=== PATIENT | male | born 1955 | race Caucasian/White ===

== ENCOUNTER 2016-09-16 20:42 | Inpatient (IN) | payer OTHER ==
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
--- NOTE | ~2016-09-16 | HP ---
History And Physical [address] [place]. [address] NAME: MARY ABRAHAM : 55 STATUS : ADM [place] PAT#: [id number] AGE: 61 ADM/REG DATE : 09/16/16 MR#: [id number] REPORT SERV DATE: 09/17/16 DICTATED BY: STERLING BOWMAN DATE: 09/16/16 REPORT STATUS : Draft TRANSCRIBED BY: MODL DATE: 09/16/16 DATE OF ADMISSION: 09/16/2016 CHIEF COMPLAINT: Abdominal pain and diarrhea. HISTORY OF PRESENT ILLNESS: This is a 61-year-old male with history of recurrent ileus in the past followed by Dr. José Miguel Hill, history of pancreatitis, and chronic hyponatremia, who presents to the emergency room at [facility] with the above-mentioned complaint. History is obtained from the patient and reviewing data available on the [employer] system. According to Mr. Abraham, he had been in his usual state of health until about two weeks ago when he started having severe sharp stabbing pain in his lower abdomen and diarrhea. This pain lasts hours at a time and does not ease up. Today, it started around 8 a.m. and lasted until half an hour ago. He passed some gas when he was here in the hospital and that seemed to help with the pain. However, he required intravenous pain medication. He says this was not associated with nausea or vomiting but just the diarrhea. Diarrhea was watery without any blood in it. He finally decided to call his [id number] who brought him to the hospital here. In the emergency room, initial workup including CT scan of the abdomen and pelvis showed moderate severity, partial small bowel obstruction. He also had hyponatremia and Hospitalist Service is asked to admit him for further evaluation and treatment. At the time of my evaluation, he denied any chest pain, palpitations, or orthopnea. He had no cough, hemoptysis, night sweats, or weight loss. He denied any recent falls or loss of consciousness. No history of recent fevers or chills. Did have some nausea, but no vomiting and had diarrhea as mentioned above. No history of recent hematemesis, hematochezia, or hematuria. No other history of recent travel or exposures other than those mentioned above. He is followed by Dr. Toro Ernst, his cadd technician and Dr. العراقي, vascular surgeon. PAST MEDICAL HISTORY: Significant for history of essential hypertension, chronic hyponatremia, and bipolar disorder. He has stents placed in his iliac arteries for peripheral vascular disease and has a history of recurrent ileus followed by Dr. José Miguel Hill. He also had a bout of pancreatitis in the past. He had admission at [facility] for pneumonia last year. SOCIAL HISTORY: He has about 100 pack-year history of smoking and continues to do so. Denies alcohol use, especially after his attack of pancreatitis. He does not use recreational drugs. 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 FAMILY HISTORY: Noncontributory. MEDICATIONS: At home were reviewed by me in the chart today and reordered by me. History And Physical [address] [address] NAME: MARY ABRAHAM : 55 STATUS : ADM [place] PAT#: [id number] AGE: 61 ADM/REG DATE : 09/16/16 MR#: [id number] REPORT SERV DATE: 09/17/16 DICTATED BY: STERLING BOWMAN DATE: 09/16/16 REPORT STATUS : Draft TRANSCRIBED BY: GUSTAVO DATE: 09/16/16 REVIEW OF SYSTEMS: As in history of present illness. All other systems were reviewed in detail and are quite unremarkable. PHYSICAL EXAMINATION: GENERAL: This is a pleasant 61-year-old, not in any acute distress. HEENT: His head is atraumatic, normocephalic. He is alert, awake, oriented to time, place, and person. His pupils are equal, reacting to light, and accommodating. External ocular muscles are intact. Membranes are moist and pink. Sclerae are nonicteric. NECK: Supple with no jugular venous distention, lymphadenopathy, or thyromegaly. LUNGS: Clear to auscultation but no wheezes, rubs, or crackles. There was prolonged expiratory phase. Trachea appeared to be in the midline. HEART: Auscultation of his heart revealed normal rate and rhythm with no murmurs, rubs, or gallops appreciated. ABDOMEN: Soft, but tender to palpation. No rebound or guarding. No rigidity. Bowel sounds are present. EXTREMITIES: Showed no cyanosis, clubbing, or edema. NEUROLOGIC: Grossly intact. No focal sensory or motor deficits. Higher functions appeared intact. Gait was not examined. VITAL SIGNS: His vital signs today showed a temperature of 98.4, pulse 72, respirations 16 a minute, blood pressure was 156/89, oxygen saturations were 99%, breathing 2 L of oxygen via nasal cannula. LABORATORY DATA: Reviewed on the [employer] system showed a sodium 127, potassium 3.9, chloride 91, CO2 of 25, BUN 10 with a creatinine 1.02, and blood glucose was 104. Liver numbers appeared within normal limits, lipase was 113. CBC showed a white blood cell count of 8800, hemoglobin was 14.4, hematocrit 39.9, platelet count was 271,000. Urinalysis was not done today. Films of the CT scan of his abdomen and pelvis were reviewed by me on the PACS today and interpreted by me. Official radiology comments were also reviewed. There is moderate severity, partial small bowel obstruction with multiple air-fluid levels. A 12-lead EKG done in emergency room was reviewed and interpreted by me. There is sinus rhythm with a rate of 76 per minute. There is occasional PVCs as well. IMPRESSION: 1. Abdominal pain. 2. Partial small bowel obstruction. 3. Chronic hyponatremia. 4. Essential hypertension. 5. Unknown arrhythmia, followed by Dr. Toro Ernst, his cadd technician for which he has recently placed the patient on metoprolol 25 mg p.o. b.i.d. 6. Bipolar disorder. 7. Peripheral vascular disease with stents in the iliac arteries done by Dr. العراقي. 8. History of recurrent ileus followed by Dr. Hill. 9. History of pancreatitis. 10.History of pneumonia. History And Physical [address] [address] NAME: MARY ABRAHAM : 55 STATUS : ADM [place] PAT#: [id number] AGE: 61 ADM/REG DATE : 09/16/16 MR#: [id number] REPORT SERV DATE: 09/17/16 DICTATED BY: STERLING BOWMAN DATE: 09/16/16 REPORT STATUS : Draft TRANSCRIBED BY: MODL DATE: 09/16/16 PLAN: We will admit Mr. Abraham to the Hospitalist Service to med/surg telemetry bed for 24- hour observation. We will keep him n.p.o. for now. Continue pain control with intravenous Toradol. We will start him on IV fluids for volume resuscitation. Follow his sodium levels with 4 hourly basic metabolic profiles. I have asked the nurses to call me with the results as they get it. We will go ahead and consult Dr. Hill to evaluate him in the morning. The ER had already spoken with surgeon Dr. Avendano who did not think it was a surgical issue at this point. We will repeat chemistry and electrolytes in the morning, replace as needed. We will also place him on unfractionated heparin for DVT prophylaxis at this time. Please see the rest of the orders today. I have discussed the above plans with the patient. His questions were answered, and he is agreeable to the above recommendations. Hospitalist Service will be following him during his stay. /GUSTAVO Sterling Bowman M.D. / [id number] CC: Shashi Joyner Jr, MD
--- NOTE | ~2016-09-16 | DS ---
Discharge Summary [address] [place]. [address] NAME: MARY MILLER : 55 STATUS : DIS [place] PAT#: [id number] AGE: 61 ADM/REG DATE : 09/16/16 MR#: [id number] REPORT SERV DATE: 09/21/16 DICTATED BY: JR. JOYNER WILLIAM JOHN DATE: 09/20/16 REPORT STATUS : Draft TRANSCRIBED BY: MODAroldo DATE: 09/20/16 ADMISSION DATE: 09/16/2016 DISCHARGE DATE: 09/20/2016 DISCHARGE DIAGNOSES: 1. Abdominal pain. 2. Partial small bowel obstruction. 3. Mesenteric ischemia with history of prior stenting. 4. Bipolar disorder with insomnia. 5. Hypertension. 6. History of bradyarrhythmia. 7. History of peripheral arterial disease with history of stents. OPERATIONS, PROCEDURES, AND TREATMENTS: Include: 1. CT of the abdomen and pelvis done 09/16, which showed diffusely fluid and air dilated small bowel at the level at least of the distal ileum, the transition zone was not identified. This is most consistent with moderate severity partial small bowel obstruction pattern, less likely is an asymmetric ileus. There was nonvisualized appendix. There was a contracted gallbladder. A small 2.3 cm hiatal hernia and severe degenerative disk disease at L2 through S1. 2. Mesenteric duplex ultrasound done 09/18 showed normal velocities in the celiac origin and superior mesenteric artery. There was increased velocity involving the HUBER origin. 3. Small bowel follow-through done 09/17 which showed mild distention of small-bowel loops with areas of angulated small bowel orientation suggesting segments of low-grade partial small bowel obstruction possibly due to adhesions. There was no evidence of high-grade obstruction. The small bowel was otherwise intrinsically normal in appearance, the small bowel transition time was less than 2.[address] angiogram of the abdomen done 09/18 showed celiac and SMA widely patent with stents in place in the celiac artery. The HUBER origin was visualized. There is considerable artifact secondary to barium within the colon from prior exam. CONSULTING PHYSICIANS: Include Dr. العراقي of Vascular Surgery, Dr. Hill of Gastroenterology, Dr. Kunz of Psychiatry. DISCHARGE MEDICATIONS: Include: 1. Plavix 75 mg orally daily. 2. Lisinopril/hydrochlorothiazide 20/25, one tablet orally daily. 3. Melatonin 5 mg orally at hour of sleep. 4. Metoprolol 25 mg orally twice a day. 5. Flomax 0.4 mg orally daily. 6. Spiriva HandiHaler one dose daily. 7. MiraLAX one packet daily. 8. Lactulose 30 mL three times a day. 9. Colace 100 mg orally daily. 10.Calcium carbonate 600 mg daily. 11.Iron daily. Discharge Summary [address] [address] NAME: MARY MILLER : 55 STATUS : DIS [place] PAT#: [id number] AGE: 61 ADM/REG DATE : 09/16/16 MR#: [id number] REPORT SERV DATE: 09/21/16 DICTATED BY: JR. JOYNER WILLIAM JOHN DATE: 09/20/16 REPORT STATUS : Draft TRANSCRIBED BY: GUSTAVO DATE: 09/20/16 12.Symbicort two puffs twice a day. 13.Sucralfate 1 g orally four times a day. 14.Baclofen 20 mg orally three times a day. 15.Levsin 0.125 mg every six hours as needed. 16.Protonix 40 mg orally daily. HOSPITAL COURSE: The patient is a 61-year-old white male who presented to the emergency room on 09/16 with complaint of abdominal pain and diarrhea. The patient has a history of recurrent ileus followed by Dr. José Miguel Hill. He was in his usual state of health until about two weeks prior to presentation when he started having severe sharp stabbing pains in the lower abdomen with diarrhea. The pain worsened in severity and he presented to the emergency room. Emergency room evaluation was significant for temperature of 98.4, heart rate 72, respiratory rate 16, blood pressure 156/89. Abdominal exam showed a soft abdomen globally tender to palpation without guarding or rebound. There was no rigidity. Bowel sounds were present. Laboratory was significant for a sodium of 127, bicarb of 25, BUN 10, creatinine 1, liver enzymes were normal. White count of 8.8. CT of the abdomen and pelvis as detailed above. The patient was admitted to the Clinical Decision Unit for observation. He was seen in consultation by Dr. José Miguel Hill and underwent a small-bowel follow-through and mesenteric ultrasound as detailed above. There was no evidence of high-grade obstruction and the patient's diet was gradually increased and he tolerated a regular diet. The mesenteric ultrasound showed potential HUBER stenosis, therefore the patient underwent a CT angiogram of the abdomen which is again detailed above. Dr. العراقي, Vascular Surgery, saw the patient, felt there was no acute need for intervention and would follow the patient up in 4 to 6 weeks. The patient was tolerating diet, was pain free, and felt to be stable for discharge on 09/20/2016. Regarding the patient's bipolar disorder, the patient says he does not sleep well and gets only 2 to 3 hours of sleep per night. He was seen in consultation by Dr. Shyam Kunz, who felt a trial of Seroquel for sleep would be reasonable. The patient did not like the way it made him feel and refused to take it. Dr. Kunz felt it was most reasonable for the patient to follow up with his outpatient psychiatrist at [facility]. The patient has already made an intake appointment for this afternoon at [facility]. The patient also has chronic hyponatremia and was instructed on fluid restriction. The patient will be discharged home today 09/20/2016. DIET: Regular with 1.5 to 2 L fluid restriction. ACTIVITY: As tolerated. Discharge Summary [address] [address] NAME: MARY MILLER : 55 STATUS : DIS [place] PAT#: [id number] AGE: 61 ADM/REG DATE : 09/16/16 MR#: [id number] REPORT SERV DATE: 09/21/16 DICTATED BY: JR. JOYNER WILLIAM JOHN DATE: 09/20/16 REPORT STATUS : Draft TRANSCRIBED BY: GUSTAVO DATE: 09/20/16 FOLLOWUP: [facility] as scheduled. Dr. العراقي in four to six weeks. The patient also needs primary care provider and requested a list of providers. For discharge exam and laboratory, please see daily progress note. This discharge took 35 minutes for patient encounter, coordination of care, and documentation. ANNY/GUSTAVO Shashi Joyner Jr, MD / [id number] CC: Shashi Joyner Jr, MD
--- NOTE | ~2016-09-16 | CN ---
Consultation Report [facility] [address] [place]. [address] NAME: MARY MILLER : 55 STATUS : ADM [place] PAT#: [id number] AGE: 61 ADM/REG DATE : 09/16/16 MR#: [id number] REPORT SERV DATE: 09/17/16 DICTATED BY: MICKY PATTON DATE: 09/17/16 REPORT STATUS : Draft TRANSCRIBED BY: MODL DATE: 09/17/16 CONSULT DATE OF CONSULTATION: CONSULT FOR: Abdominal pain with partial ileus and diarrhea. HISTORY OF PRESENT ILLNESS: Mr. Jarad Ayers is a pleasant 61-year-old gentleman who is well known to me. Has a history of pancreatitis with multiple episodes of mesenteric vascular obstruction with status post stent placement by Dr. العراقي. According to him, he had gone to [facility] with complaints of abdominal pain, was evaluated there, and then discharged home. He again went to [place] where he was again evaluated, given pain medications, and discharged home. Now, he has presented to the emergency room here with complaints of diarrhea about 10 days duration, which is profuse according to him, about 4-5 times per day and been there for about 10 days. He also complains of pain in the lower abdomen. He was evaluated here in the ER and was found to have partial ileus. Was also found to have hyponatremia, hence was admitted. Currently, the patient feels better. Has less abdominal pain. No distention of abdomen. Has had 1 or 2 stools here. He is craving for Dilaudid and morphine. The nurse was present while I was examining. Had a cinch with Toradol which he did not want, and he was demanding morphine and Dilaudid. No history of nausea or vomiting. Feels hungry at this point. Has no history of any hematemesis, hematochezia, or hematuria. PAST MEDICAL HISTORY: Significant for hypertension, bipolar disorder, iliac artery and peripheral artery stents. Has vascular disease in the mesenteric vessels and has had stents placed. Has had a bout of pancreatitis in the past. Also, has hypertension and claims to have chronic hyponatremia. SOCIAL HISTORY: He has a 100-pack year of smoking. Still smokes cigarettes. Does not take any alcohol. 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 FAMILY HISTORY: Noncontributory at this time. CURRENT MEDICATIONS: Baclofen 20 mg, calcium carbonate, Plavix 75 mg per day, docusate sodium, hyoscyamine 0.125 mg p.o. t.i.d., lactulose 10 mL daily, lisinopril 10/25, melatonin 5 mg per day, metoprolol 25 mg per day, Pantoprazole 40 mg per day, polyethylene glycol liquid 1 packet p.o. daily, sucralfate 1 g daily, Flomax 0.4 mg per day, Spiriva 1 capsule inh p.r.n., iron tablets 1 tablet per day and Symbicort 2 puffs b.i.d. PHYSICAL EXAMINATION: VITAL SIGNS: His temperature is normal. The BP is 160/90, oxygen saturation is 99%. NECK: Supple. Trachea is central. CHEST: Clear breath sounds are heard. CARDIOVASCULAR SYSTEM: S1 and S2 are heard. There is no S3. Consultation Report [address] [address] NAME: MARY MILLER : 55 STATUS : ADM [place] PAT#: [id number] AGE: 61 ADM/REG DATE : 09/16/16 MR#: [id number] REPORT SERV DATE: 09/17/16 DICTATED BY: MICKY PATTON DATE: 09/17/16 REPORT STATUS : Draft TRANSCRIBED BY: GUSTAVO DATE: 09/17/16 ABDOMEN: Soft. Bowel sounds are heard. Hernial orifices are normal. EXTREMITIES: Dorsalis pedis and posterior tibial are well felt on both sides. [employer]: Higher function cranial nerves and reflexes are normal. LABS: Showed a sodium of 127, potassium is 3.9, chloride is 91, bicarb is 25, BUN is 10, creatinine is 1.02, blood glucose is 104. Lipase is 113. Hemoglobin is 14.4, hematocrit is 39.9, platelet count is 271,000. CT scan of the abdomen shows partial small bowel obstruction with dilated loops of small bowel with some stools in the large bowel. IMPRESSION: 1. Partial small bowel obstruction. Now resolved. 2. Hyponatremia. 3. Vascular disease with multiple stents. 4. Narcotic addiction with craving for morphine and Dilaudid. Does not want Toradol. 5. Diarrhea. PLAN: Ultrasound abdomen with Doppler to assess flow in the mesenteric vessels. Small bowel followthrough. Stools for C. diff stool culture. Agree with Toradol. Avoid narcotics. Continue IV fluids like normal saline to bring his sodium up to about 130. We will restrict fluid to about 1200 mL per day. We will also avoid any laxatives at this point. Thank you for the consult. We will follow the patient with you. JOSE C/GUSTAVO Micky Patton M.D. / [id number] CC: Shashi Joyner Jr, MD
[2016-09-16 18:10] LABS: BASOPHILS ABSOLUTE 0.09 10/3/uL (0.0-0.16); EOSINOPHILS 0.3 %; EOSINOPHILS ABSOLUTE 0.03 10/3/uL (0.0-0.53); HEMOGLOBIN 14.4 g/dL (13.6-17.8); IMMATURE GRANULOCYTES 0.2 %; IMMATURE GRANULOCYTES ABSOLUTE 0.02 10/3/uL (0.0-0.11); LYMPHOCYTES 25.1 %; MEAN CORPUS HGB CONC 36.1 g/dL (32.0-36.0); MEAN CORPUSCULAR HEMOGLOB 31.1 pg (26.0-34.0); MEAN PLATELET VOLUME 8.5 fL (9.2-13.0); MONOCYTES 7.9 %; MONOCYTES ABSOLUTE 0.69 10/3/uL (0.21-1.20); NEUTROPHILS 65.5 %; NEUTROPHILS ABSOLUTE 5.75 10/3/uL (2.02-8.40); PLATELET COUNT 271 10/3/uL (150-400); RBC DISTRIBUTION WIDTH 14.6 % (12.0-16.0); RED CELL COUNT 4.63 10/6/uL (4.7-6.1); WHITE BLOOD CELLS 8.8 10/3/uL (4.5-10.5)
[2016-09-16 18:15] LABS: HEMATOCRIT 39.9 % (40.0-51.0); MANUAL DIFF NO %; MEAN CORPUSCULAR VOLUME 86.2 fL (80-100)
[2016-09-16 18:40] LABS: A/G RATIO 1.2 (0.7-1.9); ALBUMIN 4.6 G/DL (3.5-5.0); ALKALINE PHOSPHATASE 70 U/L (45-117); BUN (BLOOD UREA NITROGEN) 10 MG/DL (6-23); CO2 (CARBON DIOXIDE) 25 MMOL/L (24-34); CREATININE 1.02 MG/DL (0.70-1.30); GFR AFRICAN AMERICAN 92 ML/MIN (>=60); GFR NON AFRICAN AMERICAN 79 ML/MIN (>=60); GLOBULIN 3.9 G/DL (2.5-4.1); POTASSIUM, SERUM 3.9 MMOL/L (3.5-5.3); SGOT(AST) 22 U/L (5-40); SGPT(ALT) 27 U/L (5-65); TOTAL BILIRUBIN 0.6 MG/DL (0-1.2); TOTAL PROTEIN 8.5 G/DL (6.0-8.5)
[2016-09-16 18:41] LABS: CALCIUM, SERUM 10.3 MG/DL (8.5-10.4); CHLORIDE, SERUM 91 MMOL/L (96-112); GLUCOSE, SERUM 104 MG/DL (60-99); SODIUM, SERUM 127 MMOL/L (135-148)
[2016-09-16] MEDS ORDERED: PLAVIX PO (21:00)
[2016-09-16] MEDS ORDERED: CONSTULOSE PO (21:01)
[2016-09-16] MEDS ORDERED: MIRALAX POWDER1 PKT PO (21:01)
[2016-09-16] MEDS ORDERED: ZESTORETIC1 TA1 PO (21:01)
[2016-09-16] MEDS ORDERED: CALTRAT600 PO (21:02)
[2016-09-16] MEDS ORDERED: D.O.S.100 MG PO (21:02)
[2016-09-16] MEDS ORDERED: IRON PO (21:02)
[2016-09-16] MEDS ORDERED: SYMBICORT PO (21:03)
[2016-09-16] MEDS ORDERED: SPIRIVA INH (21:03)
[2016-09-16] MEDS ORDERED: SUCR PO (21:04)
[2016-09-16] MEDS ORDERED: *UNABLE1 (21:04)
[2016-09-16] MEDS ORDERED: BACLOFEN20 MG PO (21:40)
[2016-09-16] MEDS ORDERED: FLOMAX4 PO (21:41)
[2016-09-16] MEDS ORDERED: LEVSINTAB PO (21:41)
[2016-09-16] MEDS ORDERED: MELATONIN5 M1 PO (21:41)
[2016-09-16] MEDS ORDERED: LOP25 PO (21:41)
[2016-09-16] MEDS ORDERED: PROTONIX PO (21:41)
[2016-09-17 03:43] LABS: BASOPHILS 0.7 %; BASOPHILS ABSOLUTE 0.05 10/3/uL (0.0-0.16); EOSINOPHILS 1.1 %; EOSINOPHILS ABSOLUTE 0.08 10/3/uL (0.0-0.53); HEMATOCRIT 40.4 % (40.0-51.0); HEMOGLOBIN 14.5 g/dL (13.6-17.8); IMMATURE GRANULOCYTES 0.1 %; IMMATURE GRANULOCYTES ABSOLUTE 0.01 10/3/uL (0.0-0.11); LYMPHOCYTES 31.4 %; LYMPHOCYTES ABSOLUTE 2.37 10/3/uL (0.67-4.30); MEAN CORPUS HGB CONC 35.9 g/dL (32.0-36.0); MEAN CORPUSCULAR HEMOGLOB 30.9 pg (26.0-34.0); MEAN PLATELET VOLUME 8.9 fL (9.2-13.0); MONOCYTES 9.3 %; NEUTROPHILS 57.4 %; NEUTROPHILS ABSOLUTE 4.33 10/3/uL (2.02-8.40); PLATELET COUNT 252 10/3/uL (150-400); RBC DISTRIBUTION WIDTH 14.4 % (12.0-16.0); WHITE BLOOD CELLS 7.5 10/3/uL (4.5-10.5)
[2016-09-17 03:50] LABS: MANUAL DIFF NO %
[2016-09-17 03:54] LABS: BUN (BLOOD UREA NITROGEN) 15 MG/DL (6-23); CALCIUM, SERUM 9.8 MG/DL (8.5-10.4); CHLORIDE, SERUM 93 MMOL/L (96-112); CO2 (CARBON DIOXIDE) 23 MMOL/L (24-34); CREATININE 1.35 MG/DL (0.70-1.30); GFR AFRICAN AMERICAN 65 ML/MIN (>=60); GFR NON AFRICAN AMERICAN 56 ML/MIN (>=60); GLUCOSE, SERUM 92 MG/DL (60-99); PHOSPHORUS, SERUM 4.3 MG/DL (2.5-4.5); POTASSIUM, SERUM 3.6 MMOL/L (3.5-5.3); SODIUM, SERUM 128 MMOL/L (135-148)
[2016-09-17 10:24] LABS: BUN (BLOOD UREA NITROGEN) 17 MG/DL (6-23); CHLORIDE, SERUM 97 MMOL/L (96-112); CO2 (CARBON DIOXIDE) 21 MMOL/L (24-34); GFR AFRICAN AMERICAN 68 ML/MIN (>=60); GFR NON AFRICAN AMERICAN 59 ML/MIN (>=60); GLUCOSE, SERUM 83 MG/DL (60-99); POTASSIUM, SERUM 4.1 MMOL/L (3.5-5.3); SODIUM, SERUM 128 MMOL/L (135-148)
[2016-09-17 10:26] LABS: CALCIUM, SERUM 8.7 MG/DL (8.5-10.4)
[2016-09-17 21:32] LABS: BUN (BLOOD UREA NITROGEN) 21 MG/DL (6-23); CALCIUM, SERUM 8.2 MG/DL (8.5-10.4); CHLORIDE, SERUM 96 MMOL/L (96-112); CO2 (CARBON DIOXIDE) 24 MMOL/L (24-34); CREATININE 1.17 MG/DL (0.70-1.30); GFR AFRICAN AMERICAN 78 ML/MIN (>=60); GFR NON AFRICAN AMERICAN 67 ML/MIN (>=60); GLUCOSE, SERUM 127 MG/DL (60-99); POTASSIUM, SERUM 3.3 MMOL/L (3.5-5.3); SODIUM, SERUM 131 MMOL/L (135-148)
[2016-09-18 04:10] LABS: BASOPHILS 1.2 %; BASOPHILS ABSOLUTE 0.06 10/3/uL (0.0-0.16); EOSINOPHILS 2.6 %; EOSINOPHILS ABSOLUTE 0.13 10/3/uL (0.0-0.53); HEMOGLOBIN 12.2 g/dL (13.6-17.8); IMMATURE GRANULOCYTES 0.4 %; IMMATURE GRANULOCYTES ABSOLUTE 0.02 10/3/uL (0.0-0.11); LYMPHOCYTES 26.8 %; LYMPHOCYTES ABSOLUTE 1.33 10/3/uL (0.67-4.30); MEAN PLATELET VOLUME 8.8 fL (9.2-13.0); MONOCYTES 13.3 %; MONOCYTES ABSOLUTE 0.66 10/3/uL (0.21-1.20); NEUTROPHILS 55.7 %; NEUTROPHILS ABSOLUTE 2.76 10/3/uL (2.02-8.40); PLATELET COUNT 218 10/3/uL (150-400); RBC DISTRIBUTION WIDTH 14.2 % (12.0-16.0); RED CELL COUNT 3.94 10/6/uL (4.7-6.1)
[2016-09-18 04:12] LABS: HEMATOCRIT 33.9 % (40.0-51.0); MANUAL DIFF NO %
[2016-09-18 06:02] LABS: BUN (BLOOD UREA NITROGEN) 21 MG/DL (6-23); CALCIUM, SERUM 7.9 MG/DL (8.5-10.4); CHLORIDE, SERUM 98 MMOL/L (96-112); CO2 (CARBON DIOXIDE) 22 MMOL/L (24-34); CREATININE 0.83 MG/DL (0.70-1.30); GFR AFRICAN AMERICAN 110 ML/MIN (>=60); GFR NON AFRICAN AMERICAN 95 ML/MIN (>=60); POTASSIUM, SERUM 3.8 MMOL/L (3.5-5.3); SODIUM, SERUM 131 MMOL/L (135-148)
[2016-09-18 06:06] LABS: GLUCOSE, SERUM 80 MG/DL (60-99)
[2016-09-18 10:39] LABS: BUN (BLOOD UREA NITROGEN) 13 MG/DL (6-23); CHLORIDE, SERUM 101 MMOL/L (96-112); CO2 (CARBON DIOXIDE) 21 MMOL/L (24-34); CREATININE 0.92 MG/DL (0.70-1.30); GFR AFRICAN AMERICAN 104 ML/MIN (>=60); GFR NON AFRICAN AMERICAN 89 ML/MIN (>=60); GLUCOSE, SERUM 144 MG/DL (60-99); POTASSIUM, SERUM 3.9 MMOL/L (3.5-5.3); SODIUM, SERUM 131 MMOL/L (135-148)
[2016-09-18 16:45] LABS: BUN (BLOOD UREA NITROGEN) 12 MG/DL (6-23); CALCIUM, SERUM 8.2 MG/DL (8.5-10.4); CHLORIDE, SERUM 101 MMOL/L (96-112); GFR AFRICAN AMERICAN 112 ML/MIN (>=60); GFR NON AFRICAN AMERICAN 96 ML/MIN (>=60); SODIUM, SERUM 135 MMOL/L (135-148)
[2016-09-18 16:47] LABS: CO2 (CARBON DIOXIDE) 26 MMOL/L (24-34); GLUCOSE, SERUM 99 MG/DL (60-99)
[2016-09-19 01:36] LABS: CALCIUM, SERUM 8.8 MG/DL (8.5-10.4); CHLORIDE, SERUM 103 MMOL/L (96-112); CO2 (CARBON DIOXIDE) 25 MMOL/L (24-34); POTASSIUM, SERUM 3.9 MMOL/L (3.5-5.3); SODIUM, SERUM 136 MMOL/L (135-148)
[2016-09-19 01:42] LABS: BUN (BLOOD UREA NITROGEN) 9 MG/DL (6-23); CREATININE 0.65 MG/DL (0.70-1.30); GFR AFRICAN AMERICAN 122 ML/MIN (>=60); GFR NON AFRICAN AMERICAN 105 ML/MIN (>=60); GLUCOSE, SERUM 51 MG/DL (60-99)
[2016-09-19 05:47] LABS: BASOPHILS 1.9 %; BASOPHILS ABSOLUTE 0.07 10/3/uL (0.0-0.16); EOSINOPHILS 1.4 %; EOSINOPHILS ABSOLUTE 0.05 10/3/uL (0.0-0.53); HEMOGLOBIN 11.7 g/dL (13.6-17.8); IMMATURE GRANULOCYTES 0.3 %; IMMATURE GRANULOCYTES ABSOLUTE 0.01 10/3/uL (0.0-0.11); LYMPHOCYTES 49.7 %; MEAN CORPUS HGB CONC 35.5 g/dL (32.0-36.0); MEAN CORPUSCULAR HEMOGLOB 30.5 pg (26.0-34.0); MEAN CORPUSCULAR VOLUME 85.9 fL (80-100); MONOCYTES 15.5 %; MONOCYTES ABSOLUTE 0.56 10/3/uL (0.21-1.20); NEUTROPHILS 31.2 %; NEUTROPHILS ABSOLUTE 1.13 10/3/uL (2.02-8.40); PLATELET COUNT 228 10/3/uL (150-400); RBC DISTRIBUTION WIDTH 14.6 % (12.0-16.0); RED CELL COUNT 3.84 10/6/uL (4.7-6.1); WHITE BLOOD CELLS 3.6 10/3/uL (4.5-10.5)
[2016-09-19 05:48] LABS: MANUAL DIFF NO %
[2016-09-19 06:07] LABS: CALCIUM, SERUM 8.6 MG/DL (8.5-10.4); CHLORIDE, SERUM 103 MMOL/L (96-112); CO2 (CARBON DIOXIDE) 26 MMOL/L (24-34); CREATININE 0.65 MG/DL (0.70-1.30); GFR AFRICAN AMERICAN 122 ML/MIN (>=60); GFR NON AFRICAN AMERICAN 105 ML/MIN (>=60); GLUCOSE, SERUM 84 MG/DL (60-99); POTASSIUM, SERUM 3.8 MMOL/L (3.5-5.3); SODIUM, SERUM 138 MMOL/L (135-148)
[2016-09-19 06:12] LABS: BUN (BLOOD UREA NITROGEN) 8 MG/DL (6-23)
[2016-09-20] MEDS ORDERED: AMB5 PO (10:03)
== END 2016-09-20 13:09 | disposition home or self-care (01) | DRG 389 ==
LOC: ER 20:42 → CDU1 21:39 → CDU2 22:35
PROVIDERS: Internal Medicine; Physician Assistant
DX: K56.60 Unspecified intestinal obstruction (principal); K55.1 Chronic vascular disorders of intestine; E87.1 Hypo-osmolality and hyponatremia; F31.60 Bipolar disorder, current episode mixed, unspecified; G47.09 Other insomnia; I10 Essential (primary) hypertension; I73.9 Peripheral vascular disease, unspecified; F17.210 Nicotine dependence, cigarettes, uncomplicated; Z95.828 Presence of other vascular implants and grafts; Z79.02 Long term (current) use of antithrombotics/antiplatelets
CPT/HCPCS: 74175; 74176; 74250; 80048; 80053; 81001; 82272; 83690; 83735; 84100; 85025; 87045; 87046; 87046-59; 87899; 87899-59; 93005; 93975; 94640; 96374; 99285; A9270-GY; J1885; J2405; Q9967

== ENCOUNTER 2016-10-05 13:32 | Emergency (ER) | payer OTHER ==
[2016-10-05 10:57] LABS: BASOPHILS 1.7 %; BASOPHILS ABSOLUTE 0.12 10/3/uL (0.0-0.16); EOSINOPHILS 1.4 %; IMMATURE GRANULOCYTES 0.1 %; IMMATURE GRANULOCYTES ABSOLUTE 0.01 10/3/uL (0.0-0.11); LYMPHOCYTES 42.2 %; LYMPHOCYTES ABSOLUTE 3.01 10/3/uL (0.67-4.30); MEAN CORPUS HGB CONC 34.4 g/dL (32.0-36.0); MEAN CORPUSCULAR HEMOGLOB 30.1 pg (26.0-34.0); MEAN CORPUSCULAR VOLUME 87.6 fL (80-100); MEAN PLATELET VOLUME 8.7 fL (9.2-13.0); MONOCYTES 10.6 %; MONOCYTES ABSOLUTE 0.76 10/3/uL (0.21-1.20); NEUTROPHILS ABSOLUTE 3.14 10/3/uL (2.02-8.40); PLATELET COUNT 274 10/3/uL (150-400); RBC DISTRIBUTION WIDTH 14.3 % (12.0-16.0)
[2016-10-05 10:58] LABS: HEMATOCRIT 41.6 % (40.0-51.0); HEMOGLOBIN 14.3 g/dL (13.6-17.8); MANUAL DIFF NO %; RED CELL COUNT 4.75 10/6/uL (4.7-6.1); WHITE BLOOD CELLS 7.1 10/3/uL (4.5-10.5)
[2016-10-05 11:06] LABS: INTERNATIONAL NORMAL RATI 1.1 UNITS (-); PARTIAL THROMBO TIME 31.9 SEC (22.5-37.2); PROTIME (NOT ORD) 13.6 SEC (12.0-14.5)
[2016-10-05 11:15] LABS: ALBUMIN 4.4 G/DL (3.5-5.0); ALKALINE PHOSPHATASE 73 U/L (45-117); CALCIUM, SERUM 9.3 MG/DL (8.5-10.4); CREATININE 0.91 MG/DL (0.70-1.30); GFR AFRICAN AMERICAN 105 ML/MIN (>=60); GFR NON AFRICAN AMERICAN 91 ML/MIN (>=60); GLOBULIN 4.2 G/DL (2.5-4.1); GLUCOSE, SERUM 100 MG/DL (60-99); POTASSIUM, SERUM 4.1 MMOL/L (3.5-5.3); SGOT(AST) 21 U/L (5-40); SGPT(ALT) 25 U/L (5-65); TOTAL BILIRUBIN 0.6 MG/DL (0-1.2); TOTAL PROTEIN 8.6 G/DL (6.0-8.5); TROPONIN I <0.02 NG/ML (<0.05)
[2016-10-05 11:16] LABS: BUN (BLOOD UREA NITROGEN) 14 MG/DL (6-23); CHLORIDE, SERUM 91 MMOL/L (96-112); CO2 (CARBON DIOXIDE) 31 MMOL/L (24-34); SODIUM, SERUM 131 MMOL/L (135-148)
[2016-10-05 11:21] LABS: WBC (NOT ORDERED) (RFLEX) 0 (0-5)
[2016-10-05 11:28] LABS: ASCORBIC ACID (UR NOT ORDER) NEG (NEG); BILIRUBIN, URINE NEGATIVE (NEG); ER URINALYSIS TAT 0 Hrs 08 Mins; KETONE, URINE NEGATIVE (NEG); LEUKOCYTE ESTERASE(NOT OR NEG (NEG); NITRITE (URINE) NEG (NEG)
[~2016-10-05 13:32] MED LIST: *UNABLE1; AMB5 PO; BACLOFEN20 MG PO; CALTRAT600 PO; CONSTULOSE PO; D.O.S.100 MG PO; FLOMAX4 PO; IRON PO; LEVSINTAB PO; LOP25 PO; MELATONIN5 M1 PO; MIRALAX POWDER1 PKT PO; PLAVIX PO; PROTONIX PO; SPIRIVA INH; SUCR PO; SYMBICORT PO; ZESTORETIC1 TA1 PO
[2016-10-06] MEDS ORDERED: SPIRIVA INH (17:29)
[2016-10-06] MEDS ORDERED: ZESTORETIC1 TA1 PO (17:29)
[2016-10-06] MEDS ORDERED: PLAVIX PO (17:29)
[2016-10-06] MEDS ORDERED: LOP25 PO (17:29)
[2016-10-06] MEDS ORDERED: FLOMAX4 PO (17:29)
[2016-10-06] MEDS ORDERED: MELATONIN10 M2 PO (17:30)
[2016-10-06] MEDS ORDERED: PROBIOTIC PO (17:30)
[2016-10-06] MEDS ORDERED: MIRALAX POWDER1 PKT PO (17:31)
[2016-10-06] MEDS ORDERED: CALTRAT600 PO (17:31)
[2016-10-06] MEDS ORDERED: IRON OTC PO (17:31)
[2016-10-06] MEDS ORDERED: SYMBICORT INH (17:32)
[2016-10-06] MEDS ORDERED: AMB5 PO (17:38)
[2016-10-06] MEDS ORDERED: CONSTULOSE PO (17:39)
[2016-10-06] MEDS ORDERED: DSS PO (17:39)
== END 2016-10-05 16:11 | disposition home or self-care (01) ==
LOC: ER 13:32
PROVIDERS: Emergency Medicine; Nurse Practitioner
DX: K56.7 Ileus, unspecified (principal); K59.00 Constipation, unspecified; I10 Essential (primary) hypertension; K21.9 Gastro-esophageal reflux disease without esophagitis; Z88.8 Allergy status to other drugs, medicaments and biological substances; Z79.899 Other long term (current) drug therapy
CPT/HCPCS: 74176; 80053; 81001; 83605; 83690; 84484; 85025; 85610; 85730; 93005; 96374; 99285; A9270-GY; J2405

== ENCOUNTER 2016-10-06 17:07 | Observation (INO) | payer OTHER ==
--- NOTE | ~2016-10-06 | DS ---
Discharge Summary [facility] [address] [place]. [address] NAME: SCARLETT MILLER : 55 STATUS : DIS [place] PAT#: [id number] AGE: 61 ADM/REG DATE : 10/06/16 MR#: [id number] REPORT SERV DATE: 10/08/16 DICTATED BY: STONEY BOLAÑOS DATE: 10/08/16 REPORT STATUS : Draft TRANSCRIBED BY: MODL DATE: 10/08/16 ADMISSION DATE: 10/06/2016 DISCHARGE DATE: 10/08/2016 DISCHARGE DIAGNOSES: 1. Ileus. 2. Hypovolemic hyponatremia. 3. Bipolar. 4. Hypertension. 5. Insomnia. 6. History of mesenteric ischemia with stents. 7. Smoking. CONSULTS: None. PROCEDURES: None. HOSPITAL COURSE: This is a 61-year-old gentleman with history of mesenteric ischemia who presented to the hospital with abdominal pain. For details, please refer to H and P by Dr. Stevesnon. In summary, the patient was admitted with a diagnosis of ileus. It turns out, the ileus has been progressive over the past five years at the very least. The patient was given a bowel regimen to which he responded really well. The patient was able to tolerate p.o. diet by the second day of the hospital stay, and we were able to advance the diet slowly. The patient did present with hypokalemic hyponatremia which responded well to IV fluid resuscitation. The patient has bipolar disorder and he is very anxious in general and is worried about potential complications irrelevant to his hospitalization including pancreatic necrosis. The patient was also worried about mesenteric ischemia with his history of requiring mesenteric stents. However, it is noted that the patient had a CT of the abdomen and pelvis just three weeks ago that showed widely patent mesenteric stents. After three days of supportive care, the patient was now ready for discharge home to be followed closely as an outpatient. DISCHARGE MEDICATIONS: No changes. DISPOSITION: Home. FOLLOWUP: 1. Please follow up with PCP in the next one to two weeks. 2. Please follow up with Dr. Hill in the next one to two weeks. A total of 25 minutes spent in coordinating this patient's discharge today. DORIS/GUSTAVO Discharge Summary [facility] [address] [place] [address] NAME: SCARLETT MILLER : 55 STATUS : DIS [place] PAT#: [id number] AGE: 61 ADM/REG DATE : 10/06/16 MR#: [id number] REPORT SERV DATE: 10/08/16 DICTATED BY: STONEY BOLAÑOS DATE: 10/08/16 REPORT STATUS : Draft TRANSCRIBED BY: MODAroldo DATE: 10/08/16 Stoney Bolaños MD / [id number] CC: Stoney Bolaños MD
--- NOTE | ~2016-10-06 | HP ---
History And Physical [place] [address] [facility] [place]. [address] NAME: SCARLETT MILLER : 55 STATUS : ADM [place] PAT#: [id number] AGE: 61 ADM/REG DATE : 10/06/16 MR#: [id number] REPORT SERV DATE: 10/06/16 DICTATED BY: BURTON BOYCE DATE: 10/06/16 REPORT STATUS : Draft TRANSCRIBED BY: MODL DATE: 10/06/16 DATE OF ADMISSION: 10/06/2016 CHIEF COMPLAINT: Abdominal pain. HISTORY OF PRESENT ILLNESS: The patient is a very pleasant 61-year-old male with past medical history of mesenteric ischemia with celiac artery stent on Plavix, hypertension, tobacco use, had recurrent episodes of constipation, most recently admission for workup for ileus and constipation. He has been doing okay at home; however, yesterday had repeat episodes in which he had still had increased distention and pain, has been taking some qmlf-eih-mpgihhg enemas at home and has tried supportive treatments but the pain has become constant, moderate severity with cramping severity, today this had slightly absence of gas which has now been resolved with gas formation in the emergency room, but still had nausea. No vomiting, fever, shortness of breath, or chills. The patient reported there is no worsening symptoms but no relieving symptoms either and the patient, on a daily basis, has been getting worse. The patient did have bowel movements approximately 4 to 5 days ago and has done mechanical manipulation or digital manipulation to try to expel bowel movements but has been unsuccessful even in this manner. The patient appears to be slightly exhausted from these current systems. Of note, the patient's history reports having slightly irregular bowel habits for many years. REVIEW OF SYSTEMS: On full review of systems, a 10-point review of systems negative except that noted in the HPI. PAST MEDICAL HISTORY: Hypertension; hyponatremia; bipolar; has had iliac artery stents; peripheral vascular disease; abdominal pain; and pancreatitis. SOCIAL HISTORY: Approximately 100 pack per year smoker. No alcohol since his pancreatitis. No illegal drugs. He is adamant that he is going to quit smoking and appears fairly committed to resolution of committing prior quitting smoking. FAMILY HISTORY: Hypertension. SURGICAL HISTORY: Has had iliac artery stents. ALLERGIES: TO SEROQUEL, THORAZINE, AND TRAZODONE. HOME MEDICATIONS: Caltrate; Plavix; Colace; lactulose; Zestoretic; melatonin; Lopressor; probiotics; MiraLAX; Flomax; Spiriva; iron; Symbicort; and Ambien. PHYSICAL EXAMINATION: VITAL SIGNS: The patient's blood pressure is 121/83, pulse 89, respirations 18, O2 sats 99%, and temperature 98.3. GENERAL: Slightly older than the stated age. Mildly uncomfortable, but well developed. EYES: No scleral icterus. EOMI. History And Physical [address] [address] NAME: SCARLETT MILLER : 55 STATUS : ADM [place] PAT#: [id number] AGE: 61 ADM/REG DATE : 10/06/16 MR#: [id number] REPORT SERV DATE: 10/06/16 DICTATED BY: BURTON BOYCE DATE: 10/06/16 REPORT STATUS : Draft TRANSCRIBED BY: MODL DATE: 10/06/16 ENT: Nares patent. Tongue midline. RESPIRATORY: Clear to auscultation. No wheezes or rales. CHEST: Equal chest expansion. No increased AP diameter. CV: Regular rate. No rubs or gallops. GI: Mild tenderness. Does now have positive bowel sounds. Negative rebound. : Deferred. MUSCULOSKELETAL: Moves all extremities x4. SKIN: Warm, dry. No clubbing. LYMPH: No cervical or supraclavicular lymphadenopathy. HEME: No bleeding or bruising. NEUROLOGIC: Alert and oriented. Moves all extremities x4. PSYCHIATRIC: Appropriate mood and affect. Mildly anxious secondary to continued symptoms of abdominal discomfort. LABS: Lactate 0.8. Sodium 129, yesterday was 131, potassium 4.0, chloride 93, bicarb 26, BUN and creatinine 11 and 1.01. Glucose 159. LFTs within normal limits. Lipase 94. Urinalysis, negative leukocyte esterase and nitrites. CBC: WBC count 7.4 with H and H 13.9 and 39.3, and platelets 256. CT abdomen and pelvis, large amount of retained stool with distention of the rectum and distal sigmoid colon, mild bile duct dilatation/ileus. ASSESSMENT AND PLAN: 1. Ileus. 2. Hypovolemic hyponatremia. 3. Bipolar with insomnia features. 4. Hypertension. 5. Mesenteric ischemia history with stents. 6. Tobacco use. PLAN: 1. For ileus, this has been progressive over the last 5 years with bowel regimen. We will place a repeat bowel regimen milk and molasses enemas. We will give a dose of Movantik given recent pain medications given yesterday and today though a narcotic component but will need to rule out. Has history of distention of ischemic with the patency noted approximately one month ago of stents. We will continue supportive treatment and ED has already discussed the case with Dr. Hill and to continue bowel regimen. 2. Hypovolemic hyponatremia. IV fluids. Check osmolalities. Given tobacco history, we will eventually need screening x-rays. We will defer till after acute episode has been completed. Monitor sodium. 3. Bipolar with insomnia stable. 4. Hypertension. Continue home medications. 5. Mesenteric ischemia history with stents, ultrasound, and angiogram on September 18 with patency. 6. Tobacco use. Counseled extensively. Nicotine patch. The patient appears adamant and has resolved to quit smoking although he has been smoking for many years approximately over 100 pack-year history. 7. Disposition pending resolution of above symptoms. History And Physical [address] [address] NAME: SCARLETT MILLER : 55 STATUS : ADM [place] PAT#: [id number] AGE: 61 ADM/REG DATE : 10/06/16 MR#: [id number] REPORT SERV DATE: 10/06/16 DICTATED BY: BURTON BOYCE DATE: 10/06/16 REPORT STATUS : Draft TRANSCRIBED BY: MODL DATE: 10/06/16 DDN/GUSTAVO Burton Boyce MD / [id number] CC: Stoney Robles MD
[2016-10-06 14:28] LABS: BASOPHILS 0.8 %; BASOPHILS ABSOLUTE 0.06 10/3/uL (0.0-0.16); EOSINOPHILS 0.5 %; EOSINOPHILS ABSOLUTE 0.04 10/3/uL (0.0-0.53); ER CBC TAT 0 Hrs 05 Mins; HEMATOCRIT 39.3 % (40.0-51.0); HEMOGLOBIN 13.9 g/dL (13.6-17.8); IMMATURE GRANULOCYTES 0.1 %; IMMATURE GRANULOCYTES ABSOLUTE 0.01 10/3/uL (0.0-0.11); LYMPHOCYTES 24.4 %; LYMPHOCYTES ABSOLUTE 1.79 10/3/uL (0.67-4.30); MEAN CORPUS HGB CONC 35.4 g/dL (32.0-36.0); MEAN CORPUSCULAR HEMOGLOB 30.7 pg (26.0-34.0); MEAN CORPUSCULAR VOLUME 86.8 fL (80-100); MEAN PLATELET VOLUME 8.9 fL (9.2-13.0); MONOCYTES 8.9 %; MONOCYTES ABSOLUTE 0.65 10/3/uL (0.21-1.20); NEUTROPHILS 65.3 %; NEUTROPHILS ABSOLUTE 4.79 10/3/uL (2.02-8.40); PLATELET COUNT 256 10/3/uL (150-400); RBC DISTRIBUTION WIDTH 14.3 % (12.0-16.0); RED CELL COUNT 4.53 10/6/uL (4.7-6.1); WHITE BLOOD CELLS 7.3 10/3/uL (4.5-10.5)
[2016-10-06 14:30] LABS: MANUAL DIFF NO %
[2016-10-06 14:36] LABS: ASCORBIC ACID (UR NOT ORDER) NEG (NEG); BILIRUBIN, URINE NEGATIVE (NEG); ER URINALYSIS TAT 0 Hrs 13 Mins; KETONE, URINE NEGATIVE (NEG); LEUKOCYTE ESTERASE(NOT OR NEG (NEG); NITRITE (URINE) NEG (NEG); WBC (NOT ORDERED) (RFLEX) 2 (0-5)
[2016-10-06 14:43] LABS: A/G RATIO 1.1 (0.7-1.9); ALBUMIN 4.2 G/DL (3.5-5.0); ALKALINE PHOSPHATASE 70 U/L (45-117); BUN (BLOOD UREA NITROGEN) 11 MG/DL (6-23); CALCIUM, SERUM 9.4 MG/DL (8.5-10.4); CHLORIDE, SERUM 93 MMOL/L (96-112); CREATININE 1.01 MG/DL (0.70-1.30); GFR AFRICAN AMERICAN 93 ML/MIN (>=60); GFR NON AFRICAN AMERICAN 80 ML/MIN (>=60); SGOT(AST) 20 U/L (5-40); SGPT(ALT) 24 U/L (5-65); SODIUM, SERUM 129 MMOL/L (135-148); TOTAL BILIRUBIN 0.6 MG/DL (0-1.2); TOTAL PROTEIN 8.2 G/DL (6.0-8.5)
[2016-10-06 14:45] LABS: CO2 (CARBON DIOXIDE) 26 MMOL/L (24-34); GLUCOSE, SERUM 159 MG/DL (60-99)
[2016-10-06] MEDS ORDERED: ZESTORETIC1 TA1 PO (17:29)
[2016-10-06] MEDS ORDERED: SPIRIVA INH (17:29)
[2016-10-06] MEDS ORDERED: LOP25 PO (17:29)
[2016-10-06] MEDS ORDERED: FLOMAX4 PO (17:29)
[2016-10-06] MEDS ORDERED: PLAVIX PO (17:29)
[2016-10-06] MEDS ORDERED: MELATONIN10 M2 PO (17:30)
[2016-10-06] MEDS ORDERED: PROBIOTIC PO (17:30)
[2016-10-06] MEDS ORDERED: CALTRAT600 PO (17:31)
[2016-10-06] MEDS ORDERED: MIRALAX POWDER1 PKT PO (17:31)
[2016-10-06] MEDS ORDERED: IRON OTC PO (17:31)
[2016-10-06] MEDS ORDERED: SYMBICORT INH (17:32)
[2016-10-06] MEDS ORDERED: AMB5 PO (17:38)
[2016-10-06] MEDS ORDERED: DSS PO (17:39)
[2016-10-06] MEDS ORDERED: CONSTULOSE PO (17:39)
[2016-10-07 06:37] LABS: BASOPHILS 1.2 %; BASOPHILS ABSOLUTE 0.06 10/3/uL (0.0-0.16); EOSINOPHILS 2.5 %; EOSINOPHILS ABSOLUTE 0.12 10/3/uL (0.0-0.53); HEMATOCRIT 36.7 % (40.0-51.0); HEMOGLOBIN 12.6 g/dL (13.6-17.8); IMMATURE GRANULOCYTES 0.2 %; IMMATURE GRANULOCYTES ABSOLUTE 0.01 10/3/uL (0.0-0.11); LYMPHOCYTES 47.5 %; MEAN CORPUS HGB CONC 34.3 g/dL (32.0-36.0); MEAN CORPUSCULAR HEMOGLOB 30.3 pg (26.0-34.0); MEAN CORPUSCULAR VOLUME 88.2 fL (80-100); MEAN PLATELET VOLUME 9.1 fL (9.2-13.0); MONOCYTES 11.2 %; MONOCYTES ABSOLUTE 0.54 10/3/uL (0.21-1.20); NEUTROPHILS 37.4 %; NEUTROPHILS ABSOLUTE 1.81 10/3/uL (2.02-8.40); PLATELET COUNT 241 10/3/uL (150-400); RBC DISTRIBUTION WIDTH 14.5 % (12.0-16.0); RED CELL COUNT 4.16 10/6/uL (4.7-6.1); WHITE BLOOD CELLS 4.8 10/3/uL (4.5-10.5)
[2016-10-07 06:40] LABS: MANUAL DIFF NO %
[2016-10-07 06:47] LABS: CALCIUM, SERUM 8.7 MG/DL (8.5-10.4); CHLORIDE, SERUM 100 MMOL/L (96-112); CO2 (CARBON DIOXIDE) 28 MMOL/L (24-34); CREATININE 0.87 MG/DL (0.70-1.30); GFR AFRICAN AMERICAN 108 ML/MIN (>=60); GFR NON AFRICAN AMERICAN 93 ML/MIN (>=60); POTASSIUM, SERUM 4.1 MMOL/L (3.5-5.3)
[2016-10-07 06:48] LABS: BUN (BLOOD UREA NITROGEN) 7 MG/DL (6-23); GLUCOSE, SERUM 95 MG/DL (60-99); SODIUM, SERUM 139 MMOL/L (135-148)
[2016-10-08 06:50] LABS: BASOPHILS 1.3 %; BASOPHILS ABSOLUTE 0.06 10/3/uL (0.0-0.16); EOSINOPHILS 2.5 %; EOSINOPHILS ABSOLUTE 0.12 10/3/uL (0.0-0.53); HEMATOCRIT 33.8 % (40.0-51.0); HEMOGLOBIN 11.9 g/dL (13.6-17.8); IMMATURE GRANULOCYTES 0.2 %; IMMATURE GRANULOCYTES ABSOLUTE 0.01 10/3/uL (0.0-0.11); LYMPHOCYTES 45.1 %; LYMPHOCYTES ABSOLUTE 2.16 10/3/uL (0.67-4.30); MEAN CORPUS HGB CONC 35.2 g/dL (32.0-36.0); MEAN CORPUSCULAR HEMOGLOB 30.7 pg (26.0-34.0); MEAN CORPUSCULAR VOLUME 87.1 fL (80-100); MEAN PLATELET VOLUME 8.8 fL (9.2-13.0); MONOCYTES 11.3 %; MONOCYTES ABSOLUTE 0.54 10/3/uL (0.21-1.20); NEUTROPHILS 39.6 %; PLATELET COUNT 203 10/3/uL (150-400); RBC DISTRIBUTION WIDTH 14.3 % (12.0-16.0); RED CELL COUNT 3.88 10/6/uL (4.7-6.1); WHITE BLOOD CELLS 4.8 10/3/uL (4.5-10.5)
[2016-10-08 06:51] LABS: MANUAL DIFF NO %
[2016-10-08 06:59] LABS: BUN (BLOOD UREA NITROGEN) 5 MG/DL (6-23); CALCIUM, SERUM 8.4 MG/DL (8.5-10.4); CHLORIDE, SERUM 104 MMOL/L (96-112); CO2 (CARBON DIOXIDE) 24 MMOL/L (24-34); CREATININE 0.66 MG/DL (0.70-1.30); GFR AFRICAN AMERICAN 121 ML/MIN (>=60); GFR NON AFRICAN AMERICAN 104 ML/MIN (>=60); GLUCOSE, SERUM 87 MG/DL (60-99); POTASSIUM, SERUM 3.9 MMOL/L (3.5-5.3); SODIUM, SERUM 136 MMOL/L (135-148)
[2016-10-08] MEDS ORDERED: FLEX PO (10:00)
== END 2016-10-08 12:13 | disposition home or self-care (01) ==
LOC: ER 17:07 → 4SO 19:42
PROVIDERS: Emergency Medicine; Internal Medicine; Student in an Organized Health Care Education/Training Program
DX: K56.7 Ileus, unspecified (principal); I10 Essential (primary) hypertension; F31.9 Bipolar disorder, unspecified; I73.9 Peripheral vascular disease, unspecified; E87.1 Hypo-osmolality and hyponatremia; E86.1 Hypovolemia; F17.210 Nicotine dependence, cigarettes, uncomplicated; Z98.890 Other specified postprocedural states; Z88.8 Allergy status to other drugs, medicaments and biological substances; Z79.02 Long term (current) use of antithrombotics/antiplatelets; Z79.899 Other long term (current) drug therapy
CPT/HCPCS: 74000; 74020; 80048; 80053; 81001; 83605; 83690; 83930; 85025; 94640; 96372; 96374; 96376; 99285; A9270-GY; G0378; J1170; J2405

== ENCOUNTER 2016-10-12 18:25 | Observation (INO) | payer OTHER ==
--- NOTE | ~2016-10-12 | HP ---
History And Physical [place] [id number] [place]. [address] NAME: SCARLETT ABRAHAM : 55 STATUS : ADM [place] PAT#: [id number] AGE: 61 ADM/REG DATE : 10/12/16 MR#: [id number] REPORT SERV DATE: 10/12/16 DICTATED BY: STERLING BOWMAN DATE: 10/12/16 REPORT STATUS : Draft TRANSCRIBED BY: MODL DATE: 10/12/16 DATE OF ADMISSION: 10/12/2016 CHIEF COMPLAINT: Abdominal pain. HISTORY OF PRESENT ILLNESS: This is a 61-year-old male who was recently admitted here at [facility] for an ileus, treated as an inpatient from 10/06/2016 to 10/08/2016. History was obtained from the patient and reviewing data available on the [employer] system. According to Mr. Abraham, after he was discharged from here, he went home, he was doing reasonably well, but he continued to feel very poorly and weak. As per instructions, he stuck to mostly a liquid diet. He took about 6 to 7 Ensures a day to prevent weight loss. He also took some soda and water and other things as well. In the last day or so, he has been having severe abdominal pain, mostly in the epigastric and right upper quadrant region, and today, he decided to come to the emergency room to be evaluated. In the emergency room, initial workup including a CT scan of his abdomen and pelvis showed no acute abnormality at all. Chest x-ray did not show any acute abnormality either. However, his sodium was low at 121, and Hospitalist Service was asked to admit him for further evaluation and treatment. At the time of my evaluation, he denied any chest pain, palpitations, or orthopnea. He had no cough, hemoptysis, night sweats, or weight loss. He has not had any falls or loss of consciousness. No history of recent fevers, chills, nausea, vomiting, diarrhea, hematemesis, hematochezia, or hematuria. No history of muscle spasms or twitching or seizures. PAST MEDICAL HISTORY: Significant for recent history of ileus. He was admitted here and treated as an inpatient. He had hyponatremia upon presentation at that time as well. He has a history of hypertension, bipolar disorder, insomnia, and chronic tobacco use. SOCIAL HISTORY: He has about a [id number] history of smoking and continues to do so. He denies alcohol use or recreational drug use. 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 FAMILY HISTORY: Noncontributory. MEDICATIONS: At home were reviewed by me in the chart today and reordered by me. REVIEW OF SYSTEMS: As in the history of present illness. All other systems reviewed in detail are quite unremarkable. PHYSICAL EXAMINATION: GENERAL: This is a pleasant 61-year-old not in any acute distress. HEENT: Head is atraumatic, normocephalic. He is alert, awake, and oriented to time, place, History And Physical [address] [address] NAME: SCARLETT ABRAHAM : 55 STATUS : ADM [place] PAT#: [id number] AGE: 61 ADM/REG DATE : 10/12/16 MR#: [id number] REPORT SERV DATE: 10/12/16 DICTATED BY: STERLING BOWMAN DATE: 10/12/16 REPORT STATUS : Draft TRANSCRIBED BY: GUSTAVO DATE: 10/12/16 and person. Pupils are equal, reacting to light and accommodation. External ocular muscles are intact. Membranes are moist and pink. Sclerae are nonicteric. NECK: Supple with no jugular venous distention, lymphadenopathy, or thyromegaly. LUNGS: Clear to auscultation with no wheezes, rubs, or crackles. HEART: Heart sounds are regular with no murmurs, rubs, or gallops. ABDOMEN: Soft, nontender. Bowel sounds are present. There is no organomegaly palpable. EXTREMITIES: No cyanosis, clubbing, or edema. NEUROLOGIC: Grossly intact. No focal sensory or motor deficits. Higher functions appear intact. He is able to move all four extremities. VITAL SIGNS: His vital signs today showed a temperature of 98.1, pulse 74, respirations 18 a minute, blood pressure 117/76, and oxygen saturations 100% breathing 2 L of oxygen via nasal cannula. LABORATORY DATA: Reviewed on the [employer] system showed a sodium of 121, potassium 4.6, chloride 84, and CO2 of 27. BUN was 16 with a creatinine of 1.0. Blood glucose was 104. Liver numbers appeared within normal limits. Lactate was 1.2. CBC showed a white blood cell count of 6400, hemoglobin was 12.8, hematocrit 35.3, and platelet count was 206,000. Urinalysis was unremarkable today. Films of the CT scan of the abdomen and pelvis were reviewed by me on the PACS today and interpreted by me. Per my interpretation, there was no acute intraabdominal or pelvic pathology. Films of the chest x-ray were reviewed by me on the PACS today and interpreted by me. There was normal bony architecture with no lobar consolidations or pleural effusions seen. IMPRESSION: 1. Abdominal pain. 2. Hyponatremia. 3. Hypertension. 4. Peripheral vascular disease with stents in the iliac artery, on Plavix currently. 5. Recent abdominal ileus. 6. Bipolar disease. 7. Insomnia. 8. Tobacco use. PLAN: We will admit Mr. Abraham to the Hospitalist Service with telemetry for a 24-hour observation period. We will start him on IV fluids for volume replacement and follow serial basic metabolic profiles to check his sodium levels. I have asked nursing staff to call me with the results every time it is checked. We will follow chemistry, electrolytes, and other laboratory including CBC in the morning. We will offer pain control with nonnarcotic medications due to his recent ileus. We will also provide some Xanax for his insomnia that he is requesting. He will be on unfractionated heparin for DVT prophylaxis while here. I have discussed the above plans with the patient. His questions were answered, and he is agreeable to the above recommendations. Hospitalist Service will be following him during his stay here. MR/GUSTAVO History And Physical [address] [address] NAME: SCARLETT ABRAHAM : 55 STATUS : ADM [place] PAT#: [id number] AGE: 61 ADM/REG DATE : 10/12/16 MR#: [id number] REPORT SERV DATE: 10/12/16 DICTATED BY: STERLING BOWMAN DATE: 10/12/16 REPORT STATUS : Draft TRANSCRIBED BY: GUSTAVO DATE: 10/12/16 Sterling Bowman M.D. / [id number] CC: Ruddy Villela M.D.
--- NOTE | ~2016-10-12 | DS ---
Discharge Summary [facility] [address] [facility] [place]. [address] NAME: SCARLETT MILLER : 55 STATUS : DIS [place] PAT#: [id number] AGE: 61 ADM/REG DATE : 10/12/16 MR#: [id number] REPORT SERV DATE: 10/13/16 DICTATED BY: CLARI MATAIS II DATE: 10/13/16 REPORT STATUS : Draft TRANSCRIBED BY: MODL DATE: 10/13/16 ADMISSION DATE: 10/12/2016 DISCHARGE DATE: 10/13/2016 DISCHARGE DIAGNOSES: 1. Hyponatremia, likely volume depletion in the setting of thiazide diuretic. 2. Chronic epigastric abdominal pain associated with insomnia and stress, possibly functional dyspepsia. 3. Ileus, which is recurrent, recently hospitalized, but now resolved. 4. History of peripheral artery disease, mesenteric stenosis, status post stents, all recently shown to be patent. 5. Hypertension. 6. Bipolar disorder. 7. Insomnia. BRIEF HISTORY OF PRESENT ILLNESS: The patient is a 61-year-old male, with the above history, who presented to [facility] due to recurrent abdominal pain. For detailed history and physical examination, please see Dr. Sterling Rodriguez's note from 10/12/2016. HOSPITAL COURSE: On admission, the patient was found to have a sodium of 121, and was 136 four days prior. The patient states he has been on a liquid diet still and drinking many Ensure a day, and staying hydrated, though his abdominal pain persisted. He came back to the ER and CT of the abdomen and pelvis showed essentially completely normal abdomen. His urine was normal. Chest x-ray was normal. He did note that he had been taking his medications as prescribed and did have an episode of hypotension and orthostatic presyncope. His blood pressure has been running on the low side in the low 100s since he has been here. It seems likely his hydrochlorothiazide is not helping in this situation. His sodium came up with fluids, so we will discontinue hydrochlorothiazide, and have him continue the lisinopril, portion of his Zestoretic. Mainly, the patient states he suffers from fairly severe anxiety and insomnia. He usually has episodes of abdominal pain like this whenever he goes several days without sleeping. He thinks that his abdominal pain is mostly stress related. At this point, he is stable and ready for discharge. He will need to follow up with Dr. Hill in next few weeks as previously recommended. He does not have a current primary care physician, and have recommended getting established with one or the [facility]. The patient is seemingly motivated to get established. We will try him on Limbitrol at bedtime for sleep, anxiety, and functional dyspepsia. DISCHARGE MEDICATIONS: 1. Caltrate 600 mg p.o. b.i.d. 2. Plavix 75 mg p.o. daily. 3. Colace 100 mg p.o. b.i.d. 4. Lactulose 30 mL p.o. t.i.d. 5. Lisinopril 20 mg p.o. daily. 6. Melatonin 10 mg p.o. at bedtime. 7. Lopressor 25 mg p.o. b.i.d. 8. Protonix 40 mg p.o. daily. Discharge Summary [address] [address] NAME: SCARLETT MILLER : 55 STATUS : DIS [place] PAT#: [id number] AGE: 61 ADM/REG DATE : 10/12/16 MR#: [id number] REPORT SERV DATE: 10/13/16 DICTATED BY: CLARI MATIAS II DATE: 10/13/16 REPORT STATUS : Draft TRANSCRIBED BY: GUSTAVO DATE: 10/13/16 9. Flomax 0.4 mg p.o. daily. 10.Spiriva one cap inhaled daily. 11.Probiotic daily. 12.MiraLAX p.r.n. 13.Iron OTC tab daily. 14.Symbicort two puffs inhaled b.i.d. 15.Limbitrol 5/12.5 mg p.o. at bedtime. DISCHARGE INSTRUCTIONS: 1. The patient will follow up with Dr. Hill in the next two to four weeks. 2. The patient will get established with a primary care physician as soon as possible. Otherwise, we will need to follow up with [facility] as soon as possible. DURAN/GUSTAVO Clari Matias II, MD / [id number] CC: Ruddy Villela M.D.
[2016-10-12 14:17] LABS: BASOPHILS 0.5 %; BASOPHILS ABSOLUTE 0.03 10/3/uL (0.0-0.16); EOSINOPHILS 0.8 %; EOSINOPHILS ABSOLUTE 0.05 10/3/uL (0.0-0.53); ER CBC TAT 0 Hrs 11 Mins; HEMATOCRIT 35.3 % (40.0-51.0); HEMOGLOBIN 12.8 g/dL (13.6-17.8); IMMATURE GRANULOCYTES 0.2 %; IMMATURE GRANULOCYTES ABSOLUTE 0.01 10/3/uL (0.0-0.11); LYMPHOCYTES 22.9 %; LYMPHOCYTES ABSOLUTE 1.46 10/3/uL (0.67-4.30); MEAN CORPUS HGB CONC 36.3 g/dL (32.0-36.0); MEAN CORPUSCULAR HEMOGLOB 31.1 pg (26.0-34.0); MEAN CORPUSCULAR VOLUME 85.7 fL (80-100); MEAN PLATELET VOLUME 8.9 fL (9.2-13.0); MONOCYTES 8.5 %; MONOCYTES ABSOLUTE 0.54 10/3/uL (0.21-1.20); NEUTROPHILS 67.1 %; NEUTROPHILS ABSOLUTE 4.29 10/3/uL (2.02-8.40); PLATELET COUNT 206 10/3/uL (150-400); RBC DISTRIBUTION WIDTH 13.7 % (12.0-16.0); RED CELL COUNT 4.12 10/6/uL (4.7-6.1); WHITE BLOOD CELLS 6.4 10/3/uL (4.5-10.5)
[2016-10-12 14:18] LABS: MANUAL DIFF NO %
[2016-10-12 14:24] LABS: PARTIAL THROMBO TIME 31.3 SEC (22.5-37.2)
[2016-10-12 14:32] LABS: CALCIUM, SERUM 8.7 MG/DL (8.5-10.4); CHEST PAIN PROFILE TAT 0 Hrs 26 Mins; CO2 (CARBON DIOXIDE) 27 MMOL/L (24-34); GFR AFRICAN AMERICAN 94 ML/MIN (>=60); GFR NON AFRICAN AMERICAN 81 ML/MIN (>=60); GLUCOSE, SERUM 104 MG/DL (60-99); POTASSIUM, SERUM 4.6 MMOL/L (3.5-5.3); TROPONIN I <0.02 NG/ML (<0.05)
[2016-10-12 14:33] LABS: BUN (BLOOD UREA NITROGEN) 16 MG/DL (6-23); CHLORIDE, SERUM 84 MMOL/L (96-112); SODIUM, SERUM 121 MMOL/L (135-148)
[~2016-10-12 18:25] MED LIST changes: +DSS PO; +FLEX PO; +IRON OTC PO; +MELATONIN10 M2 PO; +PROBIOTIC PO; +SYMBICORT INH
[2016-10-12] MEDS ORDERED: PLAVIX PO (20:41)
[2016-10-12] MEDS ORDERED: CALTRAT600 PO (20:41)
[2016-10-12] MEDS ORDERED: DSS PO (20:42)
[2016-10-12] MEDS ORDERED: CONSTULOSE PO (20:42)
[2016-10-12] MEDS ORDERED: FLEX PO (20:42)
[2016-10-12] MEDS ORDERED: MELATONIN10 M2 PO (20:43)
[2016-10-12] MEDS ORDERED: MIRALAX POWDER1 PKT PO (20:43)
[2016-10-12] MEDS ORDERED: LOP25 PO (20:43)
[2016-10-12] MEDS ORDERED: PROBIOTIC PO (20:43)
[2016-10-12] MEDS ORDERED: ZESTORETIC1 TA1 PO (20:43)
[2016-10-12] MEDS ORDERED: PROTONIX PO (20:43)
[2016-10-12] MEDS ORDERED: IRON OTC PO (20:44)
[2016-10-12] MEDS ORDERED: FLOMAX4 PO (20:44)
[2016-10-12] MEDS ORDERED: SPIRIVA INH (20:44)
[2016-10-12] MEDS ORDERED: SYMBICORT INHALER INH (20:46)
[2016-10-12 20:47] LABS: WBC (NOT ORDERED) (RFLEX) 0 (0-5)
[2016-10-12 20:56] LABS: ASCORBIC ACID (UR NOT ORDER) NEG (NEG); BILIRUBIN, URINE NEGATIVE (NEG); ER URINALYSIS TAT 0 Hrs 10 Mins; KETONE, URINE NEGATIVE (NEG); LEUKOCYTE ESTERASE(NOT OR NEG (NEG); NITRITE (URINE) NEG (NEG)
[2016-10-13 00:45] LABS: BUN (BLOOD UREA NITROGEN) 10 MG/DL (6-23); CALCIUM, SERUM 8.1 MG/DL (8.5-10.4); CHLORIDE, SERUM 93 MMOL/L (96-112); CO2 (CARBON DIOXIDE) 28 MMOL/L (24-34); CREATININE 0.71 MG/DL (0.70-1.30); GFR AFRICAN AMERICAN 117 ML/MIN (>=60); GFR NON AFRICAN AMERICAN 101 ML/MIN (>=60); GLUCOSE, SERUM 67 MG/DL (60-99); POTASSIUM, SERUM 3.6 MMOL/L (3.5-5.3); SODIUM, SERUM 130 MMOL/L (135-148)
[2016-10-13 04:08] LABS: BASOPHILS 1.1 %; BASOPHILS ABSOLUTE 0.05 10/3/uL (0.0-0.16); EOSINOPHILS 3.7 %; EOSINOPHILS ABSOLUTE 0.16 10/3/uL (0.0-0.53); HEMATOCRIT 33.6 % (40.0-51.0); HEMOGLOBIN 11.9 g/dL (13.6-17.8); IMMATURE GRANULOCYTES 0.2 %; IMMATURE GRANULOCYTES ABSOLUTE 0.01 10/3/uL (0.0-0.11); LYMPHOCYTES 37.5 %; LYMPHOCYTES ABSOLUTE 1.63 10/3/uL (0.67-4.30); MEAN CORPUS HGB CONC 35.4 g/dL (32.0-36.0); MEAN CORPUSCULAR HEMOGLOB 30.6 pg (26.0-34.0); MEAN CORPUSCULAR VOLUME 86.4 fL (80-100); MEAN PLATELET VOLUME 8.4 fL (9.2-13.0); MONOCYTES 11.7 %; MONOCYTES ABSOLUTE 0.51 10/3/uL (0.21-1.20); NEUTROPHILS 45.8 %; NEUTROPHILS ABSOLUTE 1.99 10/3/uL (2.02-8.40); PLATELET COUNT 198 10/3/uL (150-400); RBC DISTRIBUTION WIDTH 13.8 % (12.0-16.0); RED CELL COUNT 3.89 10/6/uL (4.7-6.1); WHITE BLOOD CELLS 4.4 10/3/uL (4.5-10.5)
[2016-10-13 04:15] LABS: MANUAL DIFF NO %
[2016-10-13 04:20] LABS: CALCIUM, SERUM 8.8 MG/DL (8.5-10.4); CO2 (CARBON DIOXIDE) 27 MMOL/L (24-34); GFR AFRICAN AMERICAN 118 ML/MIN (>=60); GFR NON AFRICAN AMERICAN 102 ML/MIN (>=60); POTASSIUM, SERUM 3.8 MMOL/L (3.5-5.3)
[2016-10-13 04:22] LABS: BUN (BLOOD UREA NITROGEN) 9 MG/DL (6-23); CHLORIDE, SERUM 98 MMOL/L (96-112); GLUCOSE, SERUM 81 MG/DL (60-99); PHOSPHORUS, SERUM 3.2 MG/DL (2.5-4.5); SODIUM, SERUM 134 MMOL/L (135-148)
[2016-10-13 08:31] LABS: BUN (BLOOD UREA NITROGEN) 8 MG/DL (6-23); CHLORIDE, SERUM 99 MMOL/L (96-112); CO2 (CARBON DIOXIDE) 24 MMOL/L (24-34); CREATININE 0.72 MG/DL (0.70-1.30); GFR AFRICAN AMERICAN 117 ML/MIN (>=60); GFR NON AFRICAN AMERICAN 101 ML/MIN (>=60); GLUCOSE, SERUM 92 MG/DL (60-99); SODIUM, SERUM 134 MMOL/L (135-148)
[2016-10-13] MEDS ORDERED: PRIN20 PO (16:31)
[2016-10-13] MEDS ORDERED: LIMBITROL1 TAB PO (16:32)
== END 2016-10-13 16:49 | disposition home or self-care (01) ==
LOC: ER 18:25 → CDU1 21:46 → CDU2 22:30
PROVIDERS: Emergency Medicine; Internal Medicine Pulmonary Disease; Nurse Practitioner
DX: E87.1 Hypo-osmolality and hyponatremia (principal); R10.13 Epigastric pain; G47.00 Insomnia, unspecified; K56.7 Ileus, unspecified; F17.210 Nicotine dependence, cigarettes, uncomplicated; I10 Essential (primary) hypertension; F31.9 Bipolar disorder, unspecified; I73.9 Peripheral vascular disease, unspecified; Z79.02 Long term (current) use of antithrombotics/antiplatelets; Z79.899 Other long term (current) drug therapy
CPT/HCPCS: 71020; 74176; 80048; 81001; 83735; 84100; 84484; 85025; 85610; 85730; 93005; 96372; 96374; 99285; A9270-GY; G0378